=== PATIENT | male | born 1970 | race Caucasian/White ===

== ENCOUNTER 2020-02-17 22:20 | Emergency (ER) | payer OTHER ==
[~2020-02-17] VITALS: Ht 177.8 cm; Wt 81.6 kg
--- NOTE | 2020-02-17 23:16 | NUR ---
Patient discharged to home in stable condition. Written and verbal after care instructions given. Patient verbalizes understanding of instruction. Pt in custody.
[2020-02-17 23:36] VITALS: BP 131/78
== END 2020-02-17 23:37 | disposition home or self-care (01) ==
LOC: ER 22:20
DX: R45.851 Suicidal ideations (principal); Z88.5 Allergy status to narcotic agent; Z00.00 Encounter for general adult medical examination without abnormal findings